=== PATIENT | female | born 1995 | race Caucasian/White ===

== ENCOUNTER 2018-07-07 15:59 | Emergency (ER) | payer OTHER, SELFPAY ==
[2018-07-07 16:00] VITALS: BP 137/70; PULSE 58; RESP 16; TEMP 36.9; O2SAT 99; BMI 27.3
--- NOTE | 2018-07-07 16:10 | ED.VISSUMM ---
- ER Visit Summary Date of Service: 07/07/18 Chief Complaint: Headache History of Present Illness: The patient is a 22 F presenting with headache. She states her symptoms have been ongoing intermittently for the past 3 days. She has a headache on the right side of her head. She has had intermittent blurry vision. She denies fever or neck pain. Denies history of migraines. Denies other complaints. Physical Examination: Vitals are stable. Patient is afebrile. Alert no acute distress. HEENT exam right TM is obscured by cerumen, left TM normal. Pharynx is normal. Neck is supple. No meningismus Lungs are clear and equal bilaterally. Heart is regular rate and rhythm. Extremities are unremarkable. Skin is warm and dry. No rash No focal neurologic deficit. Remainder of exam is unremarkable. Emergency Department Course and Treatment: Patient declined medications in the emergency department. States her headache now is well controlled. CT head shows no acute process. On repeat evaluation, she is resting comfortably. She is advised to take Tylenol or NSAIDs for her headache. She is advised to return to ED for any worsening complaints. Disposition: Discharge home Impression: Headache, resolved This note was generated with [employer] dictation software. It may contain incorrect words, spelling, and punctuation that were not noted in review of the chart prior to signing ED Disposition - Plan for ED Patient: Chief Complaint: Headache Instructions: ED Cephalgia Unspecified Referrals: Care Physician,No Primary [Primary Care Provider] -
--- NOTE | 2018-07-07 17:59 | ED.DEP ---
ED Disposition - Plan for ED Patient: Chief Complaint: Headache Instructions: ED Cephalgia Unspecified Referrals: Care Physician,No Primary [Primary Care Provider] -
[2018-07-07 18:16] VITALS: BP 139/92; PULSE 68; RESP 14; O2SAT 97
== END 2018-07-07 18:17 | disposition home or self-care (01) ==
PROVIDERS: Emergency Provider Emergency Medicine
DX: R51 Headache (principal); H53.8 Other visual disturbances; Z79.3 Long term (current) use of hormonal contraceptives
CPT/HCPCS: 70450; 99282; A4216